=== PATIENT | female | born 1950 | race Caucasian/White ===

== ENCOUNTER 2016-04-22 05:58 | Outpatient (CLI) | payer OTHER ==
[~2016-04-22] VITALS: Ht 167.6 cm; Wt 72.6 kg
[~2016-04-22 05:58] MED LIST: ASP81TEC PO; VITAMINE D PO
--- OUTSIDE RECORDS SUMMARY | 2016-04-22 06:02 | XMS REPORT | Continuity of Care Document ---
Author Author [facility] Organization [facility] Address Unknown Phone Unavailable Allergies Active Description Code Type Severity Reaction Onset Reported/Identified Relationship to Patient Clinical Status Yes No Known Drug Allergies [id number] Drug Allergy Unknown N/ A 01/26/2012 Medications Problems Date Dx Coded Attending Type Code Diagnosis Diagnosed By 01/26/2012 Ot 562.10 DIVERTICULOSIS COLON (W/O MENT OF HEMORR 01/26/2012 Ot V12.72 PERSONAL HISTORY OF COLONIC POLYPS 01/26/2012 Ot V18.51 FAMILY HISTORY, COLONIC POLYPS 01/26/2012 Ot V76.51 SCREEN MAL NEOP-COLON 10/30/2014 Ot 733.90 10/30/2014 Ot 784.2 10/30/2014 Ot 611.72 10/30/2014 Ot 611.79 10/30/2014 Ot 268.9 10/30/2014 Ot 272.4 10/30/2014 Ot 733.90 10/30/2014 Ot 780.79 10/30/2014 Ot V72.62 10/30/2014 Ot V76.12 10/30/2014 Ot 793.80 10/30/2014 Ot V72.84 10/30/2014 GILMANDER DORAEKIA S Ot 610.0 10/30/2014 GILMANDCHERISE DOMARGUERITEKIA S Ot 611.79 10/30/2014 GILMANDCHERISE DOMARGUERITEKIA S Ot 733.00 10/30/2014 GILMANDER DOMARGUERITEKIA S Ot 780.79 10/30/2014 GILMANDCHERISE DOMARGUERITEKIA S Ot 793.82 10/30/2014 GILMANDCHERISE DORAEKIA S Ot V70.0 10/30/2014 GILMANDER DOMARGUERITEKIA S Ot 790.29 08/06/2015 GILMANDRAE LUONG DOLINE S Ot N64.4 MASTODYNIA 11/13/2015 Ot 611.72 LUMP OR MASS IN BREAST 11/13/2015 Ot 611.79 SYMPTOMS IN BREAST NEC 11/13/2015 Ot 268.9 VITAMIN D DEFICIENCY NOS 11/13/2015 Ot 272.4 HYPERLIPIDEMIA NEC/NOS 11/13/2015 Ot 733.90 BONE CARTILAGE DIS NOS 11/13/2015 Ot 780.79 OTH MALAISE FATIGUE 11/13/2015 Ot V72.62 LAB EXAM ORDERED PART OF A ROUTINE GE 11/13/2015 Ot V76.12 OTH SCREEN MAMMO-MALIGN NEOPLASM OF YINA 11/13/2015 Ot 793.80 UNSPEC ABNORMAL MAMMOGRAM 11/13/2015 Ot V72.84 EXAM PRE-OPERATIVE NOS 11/13/2015 RAE QUIGLEY DOLINE S Ot 610.0 SOLITARY CYST OF BREAST 11/13/2015 RAE QUIGLEY DOLINE S Ot 611.79 SYMPTOMS IN BREAST NEC 11/13/2015 GILMAFARRAH BRUNO KIA S Ot 733.00 OSTEOPOROSIS NOS 11/13/2015 SORAIDA RAEKIA S Ot 780.79 OTH MALAISE FATIGUE 11/13/2015 RAE QUIGLEY DOLINE S Ot 793.82 INCONCLUSIVE MAMMOGRAM 11/13/2015 RAE QUIGLEY DOLINE S Ot V70.0 ROUTINE MEDICAL EXAM 11/13/2015 GILMAFARRAH KIA S Ot 790.29 OTHER ABNORMAL GLUCOSE 11/13/2015 SORAIDA BRUNO KIA S Ot 268.9 VITAMIN D DEFICIENCY NOS 11/13/2015 GILMAFARRAH KIA S Ot 780.79 OTH MALAISE FATIGUE 11/13/2015 GILMANDCHERISE KIA S Ot 790.29 OTHER ABNORMAL GLUCOSE 11/13/2015 SORAIDA BRUNO KIA S Ot V70.0 ROUTINE MEDICAL EXAM 11/13/2015 GILMAFARRAH KIA S Ot V76.12 OTH SCREEN MAMMO-MALIGN NEOPLASM OF YINA 11/13/2015 RAE QUIGLEY DOLINE S Ot N64.4 MASTODYNIA 11/19/2015 SUE MELCHOR APRN Ot Z12.31 ENCNTR SCREEN MAMMOGRAM FOR MALIGNANT NE Procedures Results Test Result Range Complete blood count (CBC) with automated white blood cell (WBC) differential - 11/13/15 07:43 Blood leukocytes automated count (number/volume) 5.4 10*3/ uL 4.3-11.0 Blood erythrocytes automated count (number/volume) 4.50 10*6 /uL 4.35-5.85 Venous blood hemoglobin measurement (mass/volume) 13.6 g/dL 11.5-16.0 Blood hematocrit (volume fraction) 40 % 35-52 Automated erythrocyte mean corpuscular volume 89 [foz_us] 80-99 Automated erythrocyte mean corpuscular hemoglobin (mass per erythrocyte) 30 pg 25-34 Automated erythrocyte mean corpuscular hemoglobin concentration measurement ( mass/volume) 34 g/dL 32-36 Automated erythrocyte distribution width ratio 13.0 % 10.0-14.5 Automated blood platelet count (count/volume) 173 10*3/uL 130-400 Automated blood platelet mean volume measurement 10.5 [foz_ us] 7.4-10.4 Automated blood neutrophils/100 leukocytes 55 % 42-75 Automated blood lymphocytes/100 leukocytes 34 % 12-44 Blood monocytes/100 leukocytes 9 % 0-12 Automated blood eosinophils/100 leukocytes 2 % 0-10 Automated blood basophils/100 leukocytes 0 % 0-10 Blood neutrophils automated count (number/volume) 2.9 10*3 1.8-7.8 Blood lymphocytes automated count (number/volume) 1.8 10*3 1.0-4.0 Blood monocytes automated count (number/volume) 0.5 10*3 0.0-1.0 Automated eosinophil count 0.1 10*3/uL 0.0-0.3 Automated blood basophil count (count/volume) 0.0 10*3/uL 0.0-0.1 Comprehensive metabolic panel - 11/13/15 07:43 Serum or plasma sodium measurement (moles/volume) 140 mmol/ L 135-145 Serum or plasma potassium measurement (moles/volume) 4.0 mmol/L 3.6-5.0 Serum or plasma chloride measurement (moles/volume) 106 mmol /L 98-107 Carbon dioxide 25 mmol/L 21-32 Serum or plasma anion gap determination (moles/volume) 9 mmol/L 5-14 Serum or plasma urea nitrogen measurement (mass/volume) 13 mg/dL 7-18 Serum or plasma creatinine measurement (mass/volume) 0.82 mg /dL 0.60-1.30 Serum or plasma urea nitrogen/creatinine mass ratio 16 NRG Serum or plasma creatinine measurement with calculation of estimated glomerular filtration rate > NRG Serum or plasma glucose measurement (mass/volume) 103 mg/dL 70-105 Serum or plasma calcium measurement (mass/volume) 9.2 mg/dL 8.5-10.1 Serum or plasma total bilirubin measurement (mass/volume) 0.5 mg/dL 0.1-1.0 Serum or plasma alkaline phosphatase measurement (enzymatic activity/volume) 87 U/L 40-136 Serum or plasma aspartate aminotransferase measurement (enzymatic activity/ volume) 23 U/L 5-34 Serum or plasma alanine aminotransferase measurement (enzymatic activity/volume ) 22 U/L 0-55 Serum or plasma protein measurement (mass/volume) 6.7 g/dL 6.4-8.2 Serum or plasma albumin measurement (mass/volume) 4.3 g/dL 3.2-4.5 Lipid 1996 panel - 11/13/15 07:43 Serum or plasma triglyceride measurement (mass/volume) 68 mg /dL <150 Serum or plasma cholesterol measurement (mass/volume) 215 mg /dL < 200 Serum or plasma cholesterol in HDL measurement (mass/volume) 81 mg/dL 40-60 Cholesterol in LDL [mass/volume] in serum or plasma by direct assay 116 mg/dL 1-129 Serum or plasma cholesterol in VLDL measurement (mass/volume) 14 mg/dL 5-40 THYROID STIMULATING HORMONE - 11/13/15 07:43 THYROID STIMULATING HORMONE 2.47 u[iU]/mL 0.35-4.94 Serum or plasma thyroxine (T4) free measurement (mass/volume) - 11/13/15 07:43 Serum or plasma thyroxine (T4) free measurement (mass/volume) 0.90 ng/dL 0.70-1.48 Hemoglobin A1c - 11/13/15 07:43 Hemoglobin A1c 5.2 % 4.5-6.2 Encounters ACCT No. Visit Date/Time Discharge Status Pt. Type Provider Facility Loc./Unit Complaint [id number] 10/30/2014 09:20:00 2014 23:59:59 CLS Outpatient KIA QUIGLEY DO [facility] RAD SCREENING,YEARLY LAB [id number] 09/19/2013 07:37:00 2013 23:59:59 CLS Outpatient KIA QUIGLEY DO [facility] LAB HYPERGLYCEMIA [id number] 09/12/2013 07:00:00 2013 23:59:59 CLS Outpatient KIA QUIGLEY DO [facility] RAD BILAT DENSE BREAST [id number] 08/09/2012 11:47:00 2012 23:59:59 CLS Outpatient [id number] 04/22/2016 05:58:00 ACT Outpatient DEBRA MEADE, WANG Kenney [facility] PREOP HISTORY OF POLYPS [id number] 11/13/2015 07:22:00 ACT Outpatient SUE MELCHOR APRN [facility] RAD SCREENING,GENERAL MEDICAL EXAM,DIABETES, HYPERCHOLE [id number] 08/05/2015 13:38:00 ACT Outpatient KIA QUIGLEY DO [facility] RAD MASTALGIA, INNER, LOWER QUADRANT [id number] 01/26/2012 07:28:00 Document Registration [id number] 01/22/2012 08:12:00 Document Registration [id number] 01/21/2012 07:13:00 Document Registration [id number] 12/31/2011 09:20:00 Document Registration [id number] 11/03/2010 14:05:00 Document Registration [id number] 11/28/2009 09:35:00 Document Registration [id number] 06/07/2009 10:01:00 Document Registration
== END 2016-04-22 10:39 ==
LOC: PREOP 05:58
PROVIDERS: ATTEND Internal Medicine
DX: Z01.818 Encounter for other preprocedural examination (principal); K62.5 Hemorrhage of anus and rectum; Z86.010 Personal history of colon polyps

== ENCOUNTER 2016-04-24 07:46 | Day surgery (SDC) | payer MEDICARE, OTHER ==
[~2016-04-24] VITALS: Ht 167.6 cm; Wt 72.6 kg
--- OUTSIDE RECORDS SUMMARY | 2016-04-24 07:49 | XMS REPORT | Continuity of Care Document ---
Author Author [facility] Organization [facility] Address Unknown Phone Unavailable Allergies Active Description Code Type Severity Reaction Onset Reported/Identified Relationship to Patient Clinical Status Yes No Known Drug Allergies [id number] Drug Allergy Unknown N/ A 01/26/2012 Medications [...] 10/30/2014 GILMANDCHERISE DORAEKIA S Ot V70.0 10/30/2014 GILMANDCHERISE DOMARGUERITEKIA S Ot 790.29 08/06/2015 GILMANDRAE LUONG [...] Status Pt. Type Provider Facility Loc./Unit Complaint [id number] 04/22/2016 05:58:00 2016 10:39:00 DIS Outpatient DEBRA MEADE, WANG [facility] PREOP HISTORY OF POLYPS [id number] 10/30/2014 09:20:00 2014 23:59:59 CLS Outpatient KIA QUIGLEY DO [facility] RAD SCREENING,YEARLY LAB [id number] 09/19/2013 07:37:00 2013 23:59:59 CLS Outpatient KIA QUIGLEY DO [facility] LAB HYPERGLYCEMIA [id number] 09/12/2013 07:00:00 2013 23:59:59 CLS Outpatient KIA QUIGLEY DO [facility] RAD BILAT DENSE BREAST [id number] 08/09/2012 11:47:00 2012 23:59:59 CLS Outpatient [id number] 04/24/2016 07:46:00 ACT Outpatient DEBRA MEADE, WANG Kenney [facility] ENDO SCREENING/HISTORY POLYPS [id number] 11/13/2015 07:22:00 ACT Outpatient SUE MELCHOR APRN [facility] RAD SCREENING,GENERAL MEDICAL EXAM,DIABETES, HYPERCHOLE [id number] 08/05/2015 13:38:00 ACT Outpatient KIA QUIGLEY DO [facility] RAD MASTALGIA, INNER, LOWER QUADRANT [id number] 01/26/2012 07:28:00 Document Registration [id number] 01/22/2012 08:12:00 Document Registration [id number] 01/21/2012 07:13:00 Document Registration [id number] 12/31/2011 09:20:00 Document Registration [id number] 11/03/2010 14:05:00 Document Registration [id number] 11/28/2009 09:35:00 Document Registration [id number] 06/07/2009 10:01:00 Document Registration
--- OUTSIDE RECORDS SUMMARY | 2016-04-24 07:49 | XMS REPORT | Continuity of Care Document ---
Author Author [facility] Organization [facility] Address Unknown Phone Unavailable Allergies Active Description Code Type Severity Reaction Onset Reported/Identified Relationship to Patient Clinical Status Yes No Known Drug Allergies [id number] Drug Allergy Unknown N/ A 01/26/2012 Medications [...] 10/30/2014 GILMANDCHERISE DOMARGUERITEKIA S Ot 733.00 10/30/2014 IGLMANDER DOMARGUERITEKIA S Ot 780.79 10/30/2014 GILMANDCHERISE DOMARGUERITEKIA [...] Status Pt. Type Provider Facility Loc./Unit Complaint [id number] 04/22/2016 05:58:00 2016 10:39:00 DIS Outpatient DEBRA MEADE, WANG Kenney [facility] PREOP HISTORY OF POLYPS [id number] 10/30/2014 09:20:00 2014 23:59:59 CLS Outpatient KIA QUIGLEY DO [facility] RAD SCREENING,YEARLY LAB [id number] 09/19/2013 07:37:00 2013 23:59:59 CLS Outpatient KIA QUIGLEY DO [facility] LAB HYPERGLYCEMIA [id number] 09/12/2013 07:00:00 2013 23:59:59 CLS Outpatient KIA QUIGLEY DO [facility] RAD BILAT DENSE BREAST [id number] 08/09/2012 11:47:00 2012 23:59:59 CLS Outpatient [id number] 04/24/2016 07:46:00 ACT Outpatient DEBRA MEADE, WANG Kenney [facility] ENDO SCREENING/HISTORY POLYPS [id number] 11/13/2015 07:22:00 ACT Outpatient SUE MELCHOR APRN [facility] RAD SCREENING,GENERAL MEDICAL EXAM,DIABETES, HYPERCHOLE [id number] 08/05/2015 13:38:00 ACT Outpatient KIA QUIGLEY DO [facility] RAD MASTALGIA, INNER, LOWER QUADRANT [id number] 01/26/2012 07:28:00 Document Registration [id number] 01/22/2012 08:12:00 Document Registration [id number] 01/21/2012 07:13:00 Document Registration [id number] 12/31/2011 09:20:00 Document Registration [id number] 11/03/2010 14:05:00 Document Registration [id number] 11/28/2009 09:35:00 Document Registration [id number] 06/07/2009 10:01:00 Document Registration
[2016-04-24] MEDS ORDERED: 1/2 NS IV SOLUTION 1,000 ML IV STA (07:52)
[2016-04-24] MEDS ORDERED: 1/2 NS IV SOLUTION 1,000 ML IV ONE (07:57)
[2016-04-24] MEDS ORDERED: FLUMAZENIL (ROMAZICON) 0.1 MG/ML 5 ML VIAL INJ PRN (08:00)
[2016-04-24] MEDS ORDERED: NALOXONE 0.4 MG/ML 1 ML (NARCAN) VIAL IVP PRN (08:00)
--- NOTE | 2016-04-24 08:12 | HISTORY AND PHYSICAL ---
DATE OF ADMISSION: 04/24/2016 DICTATING PHYSICIAN: Dr. Restrepo COLONOSCOPY HISTORY AND PHYSICAL: Mrs. Rene is a 66-year-old white female referred by Dr. Reyes for diagnostic colonoscopy. She reports while on vacation in [place], she developed the onset of diarrhea with bright red blood per rectum. It was reported large in volume enough so that she terminated trip 10 days ago early and returned to the [facility]. She had mild cramping associated with this and it lasted for 36 hours and had 6 to 7 loose stools with blood and about 12 diarrheal stools altogether. She denied associated chills or fever. She reports that no one else was sick on the trip. She finish a weeks' worth of Cipro and Flagyl and reports that she is feeling better, although still little weak. She had no syncope or associated presyncope. I last performed a colonoscopy on her 5 years ago, at which time she had no evidence for neoplasia, but did have moderate diverticular disease confined to her sigmoid colon. She does have a past history of adenomatous colonic polyps. PAST MEDICAL HISTORY: Noncontributory. ALLERGIES: She reports no past surgeries in the last 5 years and has had no past abdominal surgery. CURRENT MEDICATIONS: Include: 1. Fish oil capsule 1 daily. 2. Baby aspirin daily. 3. 5000 units of vitamin D 3 daily. SOCIAL HISTORY: She is retired with no past smoking history and rare moderate alcohol intake. PHYSICAL EXAMINATION: Reveals a white female, who appears to be in no acute distress. VITAL SIGNS: Blood pressure 122/70. Weight 169.2. HEENT EXAMINATION: Reveals a Mallampati class II oropharyngeal configuration. Pharynx reveals no evidence for erythema or exudate. NECK: Reveals no JVD, adenopathy or bruits. CHEST: Clear. CV: Reveals a regular rate and rhythm without murmur, S3 or S4. ABDOMEN: Soft, supple without masses, organomegaly or tenderness. EXTREMITIES: Reveal no cyanosis, clubbing, or edema. ASSESSMENT: For further evaluation of diarrhea and rectal bleeding, the patient was set-up for colonoscopy on the . Prep instructions for split dose Colyte were given and questions were answered. She was instructed to abstain from aspirin in the interim. I thank you for the referral of this pleasant lady. Sincerely, Job ID: [id number] Dictated Date: 04/16/2016 20:43:00 District Superintendent Date: 04/17/2016 08:28:50/nia
[2016-04-24 08:17] VITALS: BP 110/64
[2016-04-24] MEDS ORDERED: LIDOCAINE JELLY 2% (XYLOCAINE) 5 ML TUBE ONE (08:39)
[2016-04-24] MEDS ORDERED: fentaNYL INJECTION 100 MCG/2 ML AMP ONE ×2 (08:39→08:50)
[2016-04-24] MEDS ORDERED: MIDAZOLAM 2 MG/2 ML (VERSED) VIAL ONE ×3 (08:39→08:51)
[2016-04-24] MEDS: fentaNYL INJECTION 100 MCG/2 ML AMP IVP PRN ×3 (08:40→08:50)
[2016-04-24] MEDS: MIDAZOLAM 2 MG/2 ML (VERSED) VIAL IVP PRN ×3 (08:41→09:04)
--- NOTE | 2016-04-24 08:49 | Pre-Op Note & Conscious Sedat ---
Pre-Operative Progress Note H&P Reviewed The H&P was reviewed, patient examined and no changes noted. Date H&P Reviewed: Apr 24, 2016 Time H&P Reviewed: 07:50 Conscious Sedation Pre-Proced ASA Class: 2 Airway Mallampati Classification: (twenty-nine palms appropriate class) I. II. III, IV Lungs Heart ASA score ASA 1: a normal healthy patient ASA 2: a patient with a mild systemic disease (mid diabetes, controlled hypertension, obesity ASA 3: a patient with a severe systemic disease that limits activity (angina , COPD, prior Myocardial infarction) ASA 4: a patient with an incapacitating disease that is a constant threat to life (CHF, renal failure) ASA 5: a moribund patient not expected to survive 24 hrs. (ruptured aneurysm) ASA 6: a declared brain patient whose organs are being harvested. For emergent operations, add the letter E after the classification Grade 2 Sedation Plan: Analgesia, Amnesia, Plan communicated to team members, Discussed options with patient/fam, Discussed risks with patient/fam Note The patient is an appropriate candidate to undergo the planned procedure, sedation, and anesthesia. The patient immediately re-assessed prior to indication. WANG RICHARDSON MD Apr 24, 2016 08:49
[2016-04-24] MEDS ORDERED: LIDOCAINE JELLY 2% (XYLOCAINE) 5 ML TUBE TOP ONE (09:15)
[2016-04-24] MEDS ORDERED: LIDOCAINE 4% INJ (XYLOCAINE) 5ML AMP TOP ONE (09:15)
[2016-04-24 09:35] VITALS: BP 95/58
[2016-04-24 10:05] VITALS: BP 100/54
[2016-04-24 10:25] VITALS: BP 100/54
--- NOTE | 2016-04-24 20:38 | PROCEDURE REPORT ---
PROCEDURE PHYSICIAN: WANG RICHARDSON DATE OF PROCEDURE: 04/24/2016 COLONOSCOPY SUMMARY: INDICATION FOR THE PROCEDURE: Diagnostic colonoscopy due to a history of diarrhea with rectal bleeding. PROCEDURE: The patient was placed in left lateral decubitus position. Prior to undergoing colonoscopy, digital rectal evaluation was performed. No abnormalities were noted to digital inspection of the anal canal or distal rectal vault. Anal sphincter tone was normal and the perianal reflux was intact. The colonoscope was then inserted into the rectum and under direct visualization, advanced to the cecum. The cecum was identified by identification of the ileocecal valve and cecal strap. Photographic documentation was obtained. Careful inspection was made as the colonoscope was withdrawn. FINDINGS: Telangiectatic vessel formation was noted in the anal canal, which was otherwise unremarkable. There was no evidence for overt hemorrhoids. The rectum was unremarkable. Multiple small to medium size sigmoid diverticulum were present with haustral hypertrophy. There were areas of narrowing without obstruction and some corkscrewing of the sigmoid colon compatible with severe diverticular disease. There was no evidence to suggest acute diverticulitis at the time of the procedure. No evidence for blood was noted on today's colonoscopy. No other sigmoid colonic abnormalities were appreciated. A few diverticulum were noted in the descending colon but to a much lesser extent. No other descending colonic abnormalities are appreciated. The splenic flexure, transverse colon, hepatic flexure, ascending colon and cecum were unremarkable. ASSESSMENT: No evidence for neoplasia was noted on today's evaluation. Severe diverticular disease is present most notably in the sigmoid colon and to a lesser extent in the descending colon. There is no evidence to suggest acute diverticulitis. Telangiectatic blood vessel formation is noted in the anal canal. I suspect either this or a diverticular etiology was the source of this patient's bleeding, likely triggered by an infection picked up in her foreign travel so called [place]. She was reassured. As this was her second colonoscopy without evidence for neoplasia and considering lack of family history of first degree relative with colon cancer and her severe diverticular disease, I would not recommend future screening colonoscopy. I thank you for the referral of this pleasant lady. Sincerely, Job ID: [id number] Dictated Date: 04/24/2016 13:20:05 Manager Regional Date: 04/24/2016 20:30:46 / nia DAMON
== END 2016-04-24 10:25 | disposition home or self-care (01) ==
LOC: ENDO 07:46
PROVIDERS: ATTEND Internal Medicine
DX: K57.30 Diverticulosis of large intestine without perforation or abscess without bleeding (principal); K62.5 Hemorrhage of anus and rectum; R19.7 Diarrhea, unspecified

== ENCOUNTER → 2016-11-13 | Outpatient (CLI) | payer MEDICARE, OTHER ==
[2016-11-13 10:04] LABS: BASOPHILS % (AUTO) 0 % (0-10); EOSINOPHILS # (AUTO) 0.1 10^3/uL (0.0-0.3); EOSINOPHILS % (AUTO) 2 % (0-10); LYMPHOCYTES # (AUTO) 1.7 X 10^3 (1.0-4.0); LYMPHOCYTES % (AUTO) 31 % (12-44); MEAN CORPUSCULAR HEMOGLOBIN 29 PG (25-34); MEAN CORPUSCULAR HGB CONC 33 G/DL (32-36); MEAN CORPUSCULAR VOLUME 89 FL (80-99); MONOCYTES # (AUTO) 0.5 X 10^3 (0.0-1.0); MONOCYTES % (AUTO) 9 % (0-12); NEUTROPHILS # (AUTO) 3.1 X 10^3 (1.8-7.8); NEUTROPHILS % (AUTO) 58 % (42-75); PLATELET COUNT 183 10^3/uL (130-400); RED CELL DISTRIBUTION WIDTH 13.2 % (10.0-14.5); WHITE BLOOD COUNT 5.3 10^3/uL (4.3-11.0)
[2016-11-13 10:26] LABS: ALANINE AMINOTRANSFERASE 22 U/L (0-55); ALBUMIN 4.2 GM/DL (3.2-4.5); ANION GAP 7 MMOL/L (5-14); ASPARTATE AMINO TRANSFERASE 20 U/L (5-34); BILIRUBIN,TOTAL 0.5 MG/DL (0.1-1.0); BLOOD UREA NITROGEN 16 MG/DL (7-18); BUN/CREATININE RATIO 19; CALCIUM 9.3 MG/DL (8.5-10.1); CARBON DIOXIDE 29 MMOL/L (21-32); CHLORIDE 106 MMOL/L (98-107); CHOLESTEROL 204 MG/DL (< 200); CREATININE SERUM 0.86 MG/DL (0.60-1.30); DIRECT LDL 110 MG/DL (1-129); GFR ESTIMATED > 60; GLUCOSE 99 MG/DL (70-105); POTASSIUM 4.3 MMOL/L (3.6-5.0); SODIUM 142 MMOL/L (135-145); TOTAL PROTEIN 7.1 GM/DL (6.4-8.2); TRIGLYCERIDES 73 MG/DL (<150); VLDL CHOLESTEROL 15 MG/DL (5-40)
[2016-11-13 10:47] LABS: THYROID STIMULATING HORMONE 1.77 UIU/ML (0.35-4.94)
== END ==
LOC: RAD 09:49
PROVIDERS: ATTEND Family Medicine
DX: Z12.31 Encounter for screening mammogram for malignant neoplasm of breast (principal); E78.4 Other hyperlipidemia; R73.02 Impaired glucose tolerance (oral); R63.5 Abnormal weight gain
CPT/HCPCS: 36415; 77067; 80053; 80061; 83036; 84439; 84443; 85025

== ENCOUNTER 2016-12-16 19:07 | Emergency (ER) | payer MEDICARE, OTHER ==
[~2016-12-16] VITALS: Ht 167.6 cm; Wt 74.8 kg
[2016-12-16] MEDS ORDERED: METF-478 PO (19:57)
--- NOTE | 2016-12-16 20:15 | Diagnostic Imaging Report ---
INDICATION: Fell walking. FINDINGS: There is a somewhat comminuted fracture of the distal fibula involving the lateral malleolus with an oblique fracture. There is also a longer oblique fracture extending more superiorly in the metadiaphyseal portion of the fibula. Overall alignment appears good. Ankle mortise shows no widening. The syndesmosis does not appear widened. The talar dome is smooth. There is a mildly displaced posterior malleolar fracture as well which extends into the articulating surface of the tibia. IMPRESSION: 1. Mildly displaced posterior malleolar fracture of the tibia. 2. Somewhat comminuted fracture of the metadiaphyseal portion of the distal fibula. Dictated by: Dictated on workstation # [id number]
--- NOTE | 2016-12-16 20:56 | ED Fall/Injury ---
General Chief Complaint: Lower Extremity Stated Complaint: LT ANKLE INJ Nursing Triage Note: PT REPORTS WALKING DOG THIS EVENING AND TRIPPING. REPORTS HEARING A "POP" AND LEFT ANKLE SWELLING. PT BROUGHT INTO EXAM ROOM PER WC, ACCOMPANIED BY . PT UNABLE TO BEAR WEIGHT ON LEFT LE AT THIS TIME Source: patient, spouse Exam Limitations: no limitations History of Present Illness Time seen by provider: 18:25 Initial Comments Patient presents to ER by private conveyance with chief complaint that she was out walking her dog and on a slope she fell rolling her ankle everted on the left side she felt a popping sensation and had a lot of pain and swelling. She has given herself NSAIDs as well as ice directly over the joint. She has no history of trauma to this foot. She is on metformin for prediabetes but has no other significant medical history or surgical history. She does not smoke drink or use alcohol. She has sensation in her foot. She has not tried putting any weight on it because of the pain. Allergies and Home Medications Allergies Coded Allergies: No Known Drug Allergies (Unverified , 01/26/12) Home Medications Metformin HCl 500 Mg Tab.er.24, 500 MG PO DAILY, (Reported) Constitutional: No chills, No fever, No malaise Eyes: Denies Blindness, Denies Drainage Ears, Nose, Mouth, Throat: denies ear pain, denies ear discharge Respiratory: No cough, No dyspnea on exertion Cardiovascular: No chest pain, No palpitations Gastrointestinal: No constipation, No nausea : No Musculoskeletal: see HPI, No back pain, No gout, joint pain, joint swelling Skin: change in color, No pruritus, No rash Past Znliqch-Nigmwh-Fxhrqg Hx Patient Social History Alcohol Use: Occasionally Uses Recreational Drug Use: No Smoking Status: Never a Smoker Recent Foreign Travel: No Contact w/Someone Who Travel: No Recent Infectious Disease Expo: No Recent Hopitalizations: No Immunizations Up To Date Tetanus Booster (TDap): Unknown Date of Pneumonia Vaccine: Sep 29, 2016 Date of Influenza Vaccine: Sep 29, 2016 Seasonal Allergies Seasonal Allergies: No Surgeries History of Surgeries: Yes Surgeries: Tubal Ligation Respiratory History of Respiratory Disorde: No Currently Using CPAP: No Currently Using BIPAP: No Cardiovascular History of Cardiac Disorders: No Neurological History of Neurological Disord: No Reproductive System : No Hx Reproductive Disorders: No Sexually Transmitted Disease: No HIV/AIDS: No Female Reproductive Disorders: Denies COOK VACUUM KETTLE History: Tubal Ligation Genitourinary History of Genitourinary Disor: No Gastrointestinal History of Gastrointestinal Di: Yes Gastrointestinal Disorders: Polyps Musculoskeletal History of Musculoskeletal Dis: No Endocrine History of Endocrine Disorders: No (PRE-DIABETIC) HEENT History of HEENT Disorders: No Loss of Vision: Denies Hearing Impairment: Denies Cancer History of Cancer: No Psychosocial History of Psychiatric Problem: No Integumentary History of Skin or Integumenta: No Blood Transfusions History of Blood Disorders: No Physical Exam Vital Signs Vital Sign - Last 12Hours 12/16/16 19:50 Temp 98.1 Pulse 69 Resp 18 B/P (MAP) 146/77 Pulse Ox 95 O2 Delivery Room Air Capillary Refill : Less Than 3 Seconds General Appearance: WD/WN, mild distress HEENT: PERRL/EOMI, pharynx normal Neck: full range of motion, normal inspection Cardiovascular: normal peripheral pulses, regular rate, rhythm, no edema Respiratory: chest non-tender, lungs clear, normal breath sounds Peripheral Pulses: 2+ Dorsalis Pedis (R), 2+ Left Dors-Pedis (L) (Posterior tibialis left foot 2 out of 4.) Gastrointestinal: normal bowel sounds, non tender, soft Extremities: no calf tenderness, normal capillary refill, swelling (Left ankle ecchymosis and swelling and painful to touch with limited range of motion secondary to pain.) Neurologic/Psychiatric: no motor/sensory deficits, alert, normal mood/affect, oriented x 3 Skin: normal color, warm/dry, ecchymosis Progress/Results/Core Measures Results/Orders My Orders Orders - KYAW ANAND Ankle, Left, 3 Views (12/16/16 19:49) Vital Signs/I&O Vital Sign - Last 12Hours 12/16/16 19:50 Temp 98.1 Pulse 69 Resp 18 B/P (MAP) 146/77 Pulse Ox 95 O2 Delivery Room Air Blood Pressure Mean: 100 Diagnostic Imaging Diagonstic Imaging: Xray Plain Films/CT/US/NM/MRI: ankle Comments [place]IA [place], [place] NAME: DIONNE EARL MED REC#: [id number] PT STATUS: REG ER : 1950 PHYSICIAN: KYAW ANAND MD ADMIT DATE: 12/16/16/ER Draft Date of Exam:12/16/16 ANKLE, LEFT, 3 VIEWS INDICATION: Fell walking. FINDINGS: There is a somewhat comminuted fracture of the distal fibula involving the lateral malleolus with an oblique fracture. There is also a longer oblique fracture extending more superiorly in the metadiaphyseal portion of the fibula. Overall alignment appears good. Ankle mortise shows no widening. The syndesmosis does not appear widened. The talar dome is smooth. There is a mildly displaced posterior malleolar fracture as well which extends into the articulating surface of the tibia. IMPRESSION: 1. Mildly displaced posterior malleolar fracture of the tibia. 2. Somewhat comminuted fracture of the metadiaphyseal portion of the distal fibula. Dictated on workstation # [id number] Dict: 12/16/162009 Trans: 12/16/[address] [place] [address] [id number] Interpreted by: AMRIK ZUÑIGA MD Electronically signed by: Reviewed: Reviewed by Me Departure Impression Impression: Primary Impression: Fracture tibia/fibula Qualified Codes: S82.202A - Unspecified fracture of shaft of left tibia, initial encounter for closed fracture; S82.402A - Unspecified fracture of shaft of left fibula, initial encounter for closed fracture Disposition: 01 HOME, SELF-CARE Condition: Stable Departure-Patient Inst. Decision time for Depature: 20:53 Referrals: KIA QUIGLEY DO (PCP/Family) Primary Care Physician Patient Instructions: Ankle Fracture (DC) Add. Discharge Instructions: Your fracture in your left ankle that he should follow-up with Dr. Turcios at [facility] by calling his office at [phone] in the morning to get an appointment in the next 1-2 weeks. Wear the splint daily and keep it clean and dry. You may take it off momentarily to clean but do not apply any more weight than toe-touch to your foot. Use an NSAID such as ibuprofen 800 mg every 8 hours or Naprosyn 2 capsules twice a day as well as Tylenol to control your pain if this is not working you may take the hydrocodone. Hydrocodone will make you drowsy increase her risk of falls and cause constipation so use it 1-2 tablets every 6 hours as needed responsibly. Do not mix with alcohol. If you have discoloration of your foot accompanied with tingling, numbness or extreme pain he should release the Brad bandage on your splint and raise the foot above the level of your heart. If this is not improving shortly then you should return to the ER. If your pain management is inadequate then you should follow- up with your primary care physician or the orthopedic surgeon. All discharge instructions reviewed with patient and/or family. Voiced understanding. Scripts Hydrocodone/Acetaminophen (Hydrocodon -Acetaminophen 5-325) 1 Each Tablet 1-2 EACH PO Q6H Y for BREAKTHROUGH PAIN, #30 TAB 0 Refills Prov: KYAW ANAND 12/16/16 Copy Copies To 1: KIA QUIGLEY DO Copies To 2: ORLIN TURCIOS DO KYAW ANAND Dec 16, 2016 20:56
[2016-12-16] MEDS ORDERED: HYDR-3812 PO (20:57)
[2016-12-16] MEDS ORDERED: RX-HYDROCODONE/APAP 5/325 MG #4 TAB PK PO PRN (21:30)
[2016-12-16 21:57] VITALS: BP 133/95
== END 2016-12-16 21:57 | disposition home or self-care (01) ==
LOC: EDUNIT# 19:07 → ER 19:08
DX: S82.52XA Displaced fracture of medial malleolus of left tibia, initial encounter for closed fracture (principal); Z98.51 Tubal ligation status; Z87.19 Personal history of other diseases of the digestive system; Z79.84 Long term (current) use of oral hypoglycemic drugs; W01.0XXA Fall on same level from slipping, tripping and stumbling without subsequent striking against object, initial encounter; X50.0XXA Overexertion from strenuous movement or load, initial encounter
CPT/HCPCS: 29515; 73610

== ENCOUNTER → 2017-05-13 | Outpatient (CLI) | payer MEDICARE, OTHER ==
[~2017-05-13] MED LIST changes: +ACHD5005 PO; +METF-478 PO
[2017-05-13 08:49] LABS: ALANINE AMINOTRANSFERASE 17 U/L (0-55); ALBUMIN 4.2 GM/DL (3.2-4.5); ALKALINE PHOSPHATASE 95 U/L (40-136); BILIRUBIN,TOTAL 0.6 MG/DL (0.1-1.0); BUN/CREATININE RATIO 22; CALCIUM 9.1 MG/DL (8.5-10.1); CARBON DIOXIDE 30 MMOL/L (21-32); CHLORIDE 105 MMOL/L (98-107); CHOLESTEROL 193 MG/DL (< 200); CREATININE SERUM 0.76 MG/DL (0.60-1.30); GFR ESTIMATED > 60; GLUCOSE 94 MG/DL (70-105); HDL CHOLESTEROL 73 MG/DL (40-60); POTASSIUM 3.9 MMOL/L (3.6-5.0); SODIUM 140 MMOL/L (135-145); TOTAL PROTEIN 6.8 GM/DL (6.4-8.2); TRIGLYCERIDES 62 MG/DL (<150); VLDL CHOLESTEROL 12 MG/DL (5-40)
--- NOTE | 2017-05-13 09:25 | Diagnostic Imaging Report ---
INDICATION: Osteopenia. COMPARISON: Comparison is made with prior exam from 06/07/2009. FINDINGS: Bone mineral analysis of the lumbar spine and both hips was performed. Bone mineral density of the lumbar spine at L2 through L4 is 0.998 with a T score of -1.7. This compares with 1.023 and -1.3 on prior. A bone mineral density of the left femoral neck is 0.765 with a T score of -2.0. This compares with 0.810 and -1.6. Bone mineral density of right femoral neck is 0.759 with T score of -2.0. This compares with 0.797 and -1.7 on prior. IMPRESSION: Findings consistent with osteopenia of the lumbar spine and bilateral femoral necks. Dictated by: Dictated on workstation # [id number]
== END ==
LOC: RAD 08:10
PROVIDERS: ATTEND Family Medicine
DX: M81.0 Age-related osteoporosis without current pathological fracture (principal); M85.88 Other specified disorders of bone density and structure, other site; S82.891D Other fracture of right lower leg, subsequent encounter for closed fracture with routine healing; E78.5 Hyperlipidemia, unspecified; R73.9 Hyperglycemia, unspecified
CPT/HCPCS: 36415; 77080; 80053; 80061; 83036

== ENCOUNTER 2017-05-20 08:39 | Outpatient (RCR) | payer MEDICARE, OTHER | END 2017-05-24 | disposition home or self-care (01) | PROVIDERS: ATTEND Orthopaedic Surgery | DX: S82.52XD Displaced fracture of medial malleolus of left tibia, subsequent encounter for closed fracture with routine healing (principal); X50.0XXD Overexertion from strenuous movement or load, subsequent encounter ==

== ENCOUNTER 2017-06-23 07:52 | Outpatient (RCR) | payer MEDICARE, OTHER | END 2017-06-24 13:35 | disposition home or self-care (01) | PROVIDERS: ATTEND Orthopaedic Surgery | DX: S82.52XD Displaced fracture of medial malleolus of left tibia, subsequent encounter for closed fracture with routine healing (principal); X50.0XXD Overexertion from strenuous movement or load, subsequent encounter ==

== ENCOUNTER → 2017-11-24 | Outpatient (CLI) | payer MEDICARE, OTHER ==
[2017-11-24 08:15] LABS: ALANINE AMINOTRANSFERASE 29 U/L (0-55); ALBUMIN 4.2 GM/DL (3.2-4.5); ALKALINE PHOSPHATASE 93 U/L (40-136); BILIRUBIN,TOTAL 0.5 MG/DL (0.1-1.0); BUN/CREATININE RATIO 17; CALCIUM 9.1 MG/DL (8.5-10.1); CARBON DIOXIDE 23 MMOL/L (21-32); CHLORIDE 107 MMOL/L (98-107); CHOLESTEROL 198 MG/DL (< 200); CREATININE SERUM 0.87 MG/DL (0.60-1.30); GFR ESTIMATED > 60; GLUCOSE 116 MG/DL (70-105); HDL CHOLESTEROL 72 MG/DL (40-60); POTASSIUM 4.3 MMOL/L (3.6-5.0); SODIUM 138 MMOL/L (135-145); TOTAL PROTEIN 6.8 GM/DL (6.4-8.2); TRIGLYCERIDES 77 MG/DL (<150); VLDL CHOLESTEROL 15 MG/DL (5-40)
[2017-11-24 08:36] LABS: FREE T4 (FREE THYROXINE) 0.94 NG/DL (0.70-1.48)
--- NOTE | 2017-11-24 09:09 | Diagnostic Imaging Report ---
INDICATION: Screening. TECHNIQUE: The current study was also evaluated with a Computer Aided Detection (CAD) system. 3D tomosynthesis was also performed and reviewed. COMPARISON: 11/13/2016 back through 12/31/2011. FINDINGS: There are scattered fibroglandular densities bilaterally. There are benign type calcifications in both breasts. There is no dominant mass, spiculated lesion, or suspicious calcification identified. The skin, nipples, and axillae are unremarkable. IMPRESSION: Benign findings. ACR BI-RADS Category 2: Benign findings. Result letter will be mailed to the patient. Note: At least 10% of breast cancer is not imaged by mammography. Dictated by: Dictated on workstation # [id number]
== END ==
LOC: RAD 07:25
PROVIDERS: ATTEND Family Medicine
DX: Z12.31 Encounter for screening mammogram for malignant neoplasm of breast (principal); E78.5 Hyperlipidemia, unspecified; R73.9 Hyperglycemia, unspecified; M85.88 Other specified disorders of bone density and structure, other site
CPT/HCPCS: 36415; 77067; 80053; 80061; 82306; 83036; 84439; 84443

== ENCOUNTER → 2018-12-02 | Outpatient (CLI) | payer MEDICARE, OTHER ==
[2018-12-02 08:45] LABS: BASOPHILS % (AUTO) 1 % (0-10); EOSINOPHILS # (AUTO) 0.1 10^3/uL (0.0-0.3); EOSINOPHILS % (AUTO) 3 % (0-10); HEMATOCRIT 40 % (35-52); HEMOGLOBIN 13.5 G/DL (11.5-16.0); LYMPHOCYTES # (AUTO) 1.3 X 10^3 (1.0-4.0); LYMPHOCYTES % (AUTO) 37 % (12-44); MEAN CORPUSCULAR HEMOGLOBIN 30 PG (25-34); MEAN CORPUSCULAR HGB CONC 33 G/DL (32-36); MEAN CORPUSCULAR VOLUME 89 FL (80-99); MONOCYTES # (AUTO) 0.5 X 10^3 (0.0-1.0); MONOCYTES % (AUTO) 14 % (0-12); NEUTROPHILS # (AUTO) 1.6 X 10^3 (1.8-7.8); NEUTROPHILS % (AUTO) 45 % (42-75); PLATELET COUNT 157 10^3/uL (130-400); RED CELL DISTRIBUTION WIDTH 13.6 % (10.0-14.5); WHITE BLOOD COUNT 3.5 10^3/uL (4.3-11.0)
[2018-12-02 09:07] LABS: ALANINE AMINOTRANSFERASE 34 U/L (0-55); ALBUMIN 4.1 GM/DL (3.2-4.5); ALKALINE PHOSPHATASE 79 U/L (40-136); BILIRUBIN,TOTAL 0.4 MG/DL (0.1-1.0); BUN/CREATININE RATIO 14; CALCIUM 9.3 MG/DL (8.5-10.1); CARBON DIOXIDE 26 MMOL/L (21-32); CHLORIDE 107 MMOL/L (98-107); CHOLESTEROL 190 MG/DL (< 200); CREATININE SERUM 0.83 MG/DL (0.60-1.30); GFR ESTIMATED > 60; GLUCOSE 107 MG/DL (70-105); HDL CHOLESTEROL 66 MG/DL (40-60); POTASSIUM 4.2 MMOL/L (3.6-5.0); SODIUM 141 MMOL/L (135-145); TOTAL PROTEIN 6.8 GM/DL (6.4-8.2); TRIGLYCERIDES 71 MG/DL (<150); VLDL CHOLESTEROL 14 MG/DL (5-40)
[2018-12-02 09:23] LABS: FREE T4 (FREE THYROXINE) 0.97 NG/DL (0.70-1.48)
[2018-12-02 09:54] LABS: ERYTHROCYTE SEDIMENTATION RATE 11 MM/HR (0-30)
--- NOTE | 2018-12-02 13:02 | Diagnostic Imaging Report ---
INDICATION: Routine screening. Comparison is made with prior mammogram from 11/24/2017 and 11/13/2016. 2-D and 3-D bilateral screening mammography was performed with a Computer Aided Detection (CAD) system. 3-D tomosynthesis was also performed and reviewed. FINDINGS: Both breasts are heterogeneously dense, limiting the sensitivity of mammography. There is a questionable area of architectural distortion identified just medial to the nipple line at mid depth on the left CC view. This is best seen on tomographic image 33 of 76. This is seen at the nipple line on MLO view, tomographic image 42 of 78. Additional views are recommended. Other benign calcifications in both breasts. No malignant appearing microcalcifications are seen. Axillae are unremarkable. IMPRESSION: Questionable architectural distortion in the left breast mid depth slightly medial. Additional views are recommended for further evaluation. ACR BI-RADS Category 0: Incomplete. (Needs additional imaging evaluation). Result letter will be mailed to the patient. Note: At least 10% of breast cancer is not imaged by mammography. Dictated by: Dictated on workstation # [id number]
== END ==
LOC: RAD 08:16
PROVIDERS: ATTEND Family Medicine
DX: Z12.31 Encounter for screening mammogram for malignant neoplasm of breast (principal); E78.5 Hyperlipidemia, unspecified; R73.9 Hyperglycemia, unspecified; M85.811 Other specified disorders of bone density and structure, right shoulder
CPT/HCPCS: 36415; 77067; 80053; 80061; 82306; 83036; 84439; 84443; 85025; 85652

== ENCOUNTER → 2018-12-14 | Outpatient (CLI) | payer MEDICARE, OTHER ==
--- NOTE | 2018-12-14 09:03 | Diagnostic Imaging Report ---
INDICATION: Left breast density. Patient presents for additional views. COMPARISON: Correlation is made with the recent screening study from 12/02/2018. TECHNIQUE: Unilateral left 2D and 3D diagnostic mammography was performed including spot compression CC and ML as well as conventional 90 degree lateral views. FINDINGS: There is a persistent area of spiculation and architectural distortion in the inner left breast approximately 5 cm from the nipple. There are some benign calcifications in the left breast. IMPRESSION: Persistent density and architectural distortion in the inner left breast at approximately the 9 o'clock location 5 cm from the nipple. Further evaluation with ultrasound is recommended. ACR BI-RADS Category 0: Incomplete. (Needs additional imaging evaluation). Result letter will be mailed to the patient. Note: At least 10% of breast cancer is not imaged by mammography. Dictated by: Dictated on workstation # [id number]
--- NOTE | 2018-12-14 09:45 | Diagnostic Imaging Report ---
INDICATION: Left breast density and architectural distortion noted on mammogram. This study is performed for further evaluation. COMPARISON: Correlation is made with the diagnostic mammogram from earlier this same day as well as the screening mammogram from 12/02/2018. FINDINGS: Sonographic interrogation of the inner left breast was performed. There are two areas of hypoechogenicity at the 9 o'clock location of the left breast 4 cm from the nipple. The largest measures approximately 6 mm x 4 mm x 7 mm. These most likely represent small cysts and likely do not account for the area of architectural distortion noted mammographically. No other suspicious abnormalities are seen. IMPRESSION: No suspicious sonographic abnormality is seen. Even so, the mammographic area of architectural distortion in the inner left breast does remain concerning. Tissue sampling is recommended. This would be amenable to stereotactic biopsy. The results and recommendations were discussed with the patient. The patient will be scheduled for stereotactic biopsy. ACR BI-RADS Category 4: Suspicious abnormality. Dictated by: Dictated on workstation # [id number]
== END ==
LOC: RAD 08:12
PROVIDERS: ATTEND Family Medicine
DX: R92.2 Inconclusive mammogram (principal)
CPT/HCPCS: 76642

== ENCOUNTER → 2018-12-21 | Outpatient (CLI) | payer MEDICARE, OTHER ==
[~2018-12-21] VITALS: Ht 167.7 cm; Wt 72.7 kg
[~2018-12-21] MED LIST changes: +LIDOCAINE 1% INJ 20 ML 20 ML VIAL INJ ONE
--- NOTE | 2018-12-21 19:49 | Diagnostic Imaging Report ---
INDICATION: Abnormal screening mammogram with architectural distortion and questionable breast mass TECHNIQUE AND FINDINGS: The patient was placed in the Mammotome machine with the biopsy needle projecting from the lateral aspect of the breast. The breast was prepped and draped utilizing maximal sterile barrier technique. Local anesthesia was obtained with 2% lidocaine. Needle was advanced into the area of architectural distortion under stereotactic guidance. Four core biopsy specimens were obtained. Following biopsy, a surgical clip was placed. Post mammogram demonstrates the clip in satisfactory position. IMPRESSION: Successful mammotome biopsy of area of architectural distortion in the left breast with clip placement as described. Dictated by: Dictated on workstation # [id number]
== END ==
LOC: RAD 09:38
PROVIDERS: ATTEND Family Medicine
DX: N63.20 Unspecified lump in the left breast, unspecified quadrant (principal); N64.89 Other specified disorders of breast
CPT/HCPCS: 19081

== ENCOUNTER → 2019-12-12 | Outpatient (CLI) | payer MEDICARE, OTHER ==
[~2019-12-12] MED LIST changes: -LIDOCAINE 1% INJ 20 ML 20 ML VIAL INJ ONE
--- NOTE | 2019-12-12 09:23 | Diagnostic Imaging Report ---
INDICATION: Postmenopausal female COMPARISON: 05/13/2017 FINDINGS: AP Spine L1-L4: [BMD (g/cm2): 1.009] [T-Score: -1.6] [Z-Score: -0.2] [BMD Previous: 0.998] [BMD % Change: 1.1] LT Hip Neck: [BMD (g/cm2): 0.777] [T-Score: -1.9] [Z-Score: -0.4] LT Hip Total: [BMD (g/cm2):0.806] [T-Score:-1.6] [Z-Score: -0.4] [BMD Previous: 0.762] [BMD % Change: 5.8] RT Hip Neck: [BMD (g/cm2):0.819] [T-Score:-1.6] [Z-Score:-0.1] RT Hip Total: [BMD (g/cm2):0.875] [T-score:-1.1] [Z-Score:0.2] [BMD Previous:0.837] [BMD % Change:4.5] World Health Organization criteria for BMD interpretation classify patients as Normal (T-score at or above -1.0), Osteopenic (T-score between -1.0 and -2.5) or Osteoporotic (T-score at or below -2.5). LIMITATIONS AND MODIFICATION: None. FRACTURE RISK (FRAX SCORE): The ten year probability of (%): Major Osteoporotic Fracture: [17.9] Hip Fracture: [3.0] IMPRESSION: 1. Osteopenia (Low bone mass). 2. There has been a statistically significant increase in BMD since prior exam, detailed above. 3. See below National Osteoporosis Foundation guidelines on when to potentially initiate pharmacologic therapy. Based on the National Osteoporosis Foundation Guidelines, pharmacologic treatment should be initiated in any of the following, unless clinical conditions suggest otherwise: * Any patient with prior fragility fracture of the hip or vertebrae. A spine fracture indicates 5X risk for subsequent spine fracture and 2X risk for subsequent hip fracture. * Osteoporosis (T-score <-2.5). * Postmenopausal women and men age 50 and older with low bone mass/osteopenia (T-score between -1.0 and -2.5) by DXA and 10-year major osteoporotic fracture greater than 20% or a 10-year probability of hip fracture greater than 3%. These fracture risks are supplied above in the FRAX score, if applicable. * Clinician judgement and/or patient preferences may indicate treatment for people with 10-year fracture probabilities above or below these levels. Dictated by: Dictated on workstation # [id number]
== END ==
LOC: RAD 08:21
PROVIDERS: ATTEND Family Medicine
DX: M85.80 Other specified disorders of bone density and structure, unspecified site (principal); Z78.0 Asymptomatic menopausal state; Z79.899 Other long term (current) drug therapy
CPT/HCPCS: 77080

== ENCOUNTER → 2020-12-04 | Outpatient (CLI) | payer MEDICARE ==
[2020-12-04 10:03] LABS: BASOPHILS % (AUTO) 1 % (0-10); EOSINOPHILS # (AUTO) 0.1 10^3/uL (0.0-0.3); EOSINOPHILS % (AUTO) 2 % (0-10); HEMATOCRIT 42 % (35-52); HEMOGLOBIN 13.8 g/dL (11.5-16.0); LYMPHOCYTES # (AUTO) 1.5 10^3/uL (1.0-4.0); LYMPHOCYTES % (AUTO) 25 % (12-44); MEAN CORPUSCULAR HEMOGLOBIN 30 pg (25-34); MEAN CORPUSCULAR HGB CONC 33 g/dL (32-36); MEAN CORPUSCULAR VOLUME 91 fL (80-99); MEAN PLATELET VOLUME 9.7 fL (9.0-12.2); MONOCYTES # (AUTO) 0.5 10^3/uL (0.0-1.0); MONOCYTES % (AUTO) 9 % (0-12); NEUTROPHILS % (AUTO) 64 % (42-75); PLATELET COUNT 189 10^3/uL (130-400); WHITE BLOOD COUNT 6.2 10^3/uL (4.3-11.0)
[2020-12-04 10:43] LABS: ALBUMIN 4.2 GM/DL (3.2-4.5); BILIRUBIN,TOTAL 0.4 MG/DL (0.1-1.0); CALCIUM 9.6 MG/DL (8.5-10.1); CREATININE SERUM 0.85 MG/DL (0.60-1.30); FREE T4 (FREE THYROXINE) 0.9 NG/DL (0.70-1.48); POTASSIUM 4.2 MMOL/L (3.6-5.0); TOTAL PROTEIN 7.2 GM/DL (6.4-8.2)
== END ==
LOC: LAB 09:25
PROVIDERS: ATTEND Family Medicine
DX: Z00.00 Encounter for general adult medical examination without abnormal findings (principal); E78.2 Mixed hyperlipidemia; R73.02 Impaired glucose tolerance (oral)
CPT/HCPCS: 36415; 80053; 80061; 84439; 84443; 85025

== ENCOUNTER → 2021-12-15 | Outpatient (CLI) | payer MEDICARE, OTHER ==
[2021-12-15 09:37] LABS: BASOPHILS # (AUTO) 0.1 10^3/uL (0.0-0.1); BASOPHILS % (AUTO) 1 % (0-10); EOSINOPHILS # (AUTO) 0.1 10^3/uL (0.0-0.3); EOSINOPHILS % (AUTO) 2 % (0-10); HEMATOCRIT 41 % (35-52); HEMOGLOBIN 13.7 g/dL (11.5-16.0); LYMPHOCYTES # (AUTO) 1.5 10^3/uL (1.0-4.0); LYMPHOCYTES % (AUTO) 29 % (12-44); MEAN CORPUSCULAR HEMOGLOBIN 30 pg (25-34); MEAN CORPUSCULAR HGB CONC 33 g/dL (32-36); MEAN CORPUSCULAR VOLUME 91 fL (80-99); MEAN PLATELET VOLUME 9.8 fL (9.0-12.2); MONOCYTES # (AUTO) 0.5 10^3/uL (0.0-1.0); MONOCYTES % (AUTO) 9 % (0-12); NEUTROPHILS # (AUTO) 3.2 10^3/uL (1.8-7.8); NEUTROPHILS % (AUTO) 60 % (42-75); PLATELET COUNT 188 10^3/uL (130-400); WHITE BLOOD COUNT 5.3 10^3/uL (4.3-11.0)
[2021-12-15 09:58] LABS: ALBUMIN 4.3 GM/DL (3.2-4.5); BILIRUBIN,TOTAL 0.5 MG/DL (0.1-1.0); CALCIUM 9.7 MG/DL (8.5-10.1); CREATININE SERUM 0.85 MG/DL (0.60-1.30); POTASSIUM 3.9 MMOL/L (3.6-5.0); TOTAL PROTEIN 7.3 GM/DL (6.4-8.2)
== END ==
LOC: LAB 09:16
PROVIDERS: ATTEND Family Medicine
DX: E78.00 Pure hypercholesterolemia, unspecified (principal); R53.83 Other fatigue
CPT/HCPCS: 36415; 80053; 80061; 84443; 85025

== ENCOUNTER → 2021-12-16 | Outpatient (CLI) | payer MEDICARE ==
--- NOTE | 2021-12-16 12:25 | Diagnostic Imaging Report ---
INDICATION: Postmenopausal screening COMPARISON: 12/12/2019 FINDINGS: AP Spine L1-L4: [BMD (g/cm2): 1.042] [T-Score: -1.3] [Z-Score: 0.0] [BMD Previous: 1.009] [BMD % Change: 3.3] LT Hip Neck: [BMD (g/cm2): 0.777] [T-Score: -1.9] [Z-Score: -0.4] LT Hip Total: [BMD (g/cm2):0.788] [T-Score:-1.7] [Z-Score: -0.5] [BMD Previous: 0.806] [BMD % Change: -2.2] RT Hip Neck: [BMD (g/cm2):0.763] [T-Score:-2.0] [Z-Score:-0.5] RT Hip Total: [BMD (g/cm2):0.796] [T-score:-1.7] [Z-Score:-0.5] [BMD Previous:0.875] [BMD % Change:-9.0] *Indicates significant change from prior examination based on 95% confidence level. World Health Organization criteria for BMD interpretation classify patients as Normal (T-score at or above -1.0), Osteopenic (T-score between -1.0 and -2.5) or Osteoporotic (T-score at or below -2.5). LIMITATIONS AND MODIFICATION: None. FRACTURE RISK (FRAX SCORE): The ten year probability of (%): Major Osteoporotic Fracture: [18.7] Hip Fracture: [3.7] IMPRESSION: 1. Osteopenia (Low bone mass). 2. No significant change in bone mineral density since prior examination. 3. See below National Osteoporosis Foundation guidelines on when to potentially initiate pharmacologic therapy. Based on the National Osteoporosis Foundation Guidelines, pharmacologic treatment should be initiated in any of the following, unless clinical conditions suggest otherwise: * Any patient with prior fragility fracture of the hip or vertebrae. A spine fracture indicates 5X risk for subsequent spine fracture and 2X risk for subsequent hip fracture. * Osteoporosis (T-score <-2.5). * Postmenopausal women and men age 50 and older with low bone mass/osteopenia (T-score between -1.0 and -2.5) by DXA and 10-year major osteoporotic fracture greater than 20% or a 10-year probability of hip fracture greater than 3%. These fracture risks are supplied above in the FRAX score, if applicable. * Clinician judgement and/or patient preferences may indicate treatment for people with 10-year fracture probabilities above or below these levels. Dictated by: Dictated on workstation # [id number]
== END ==
LOC: RAD 08:23
PROVIDERS: ATTEND Family Medicine
DX: M85.80 Other specified disorders of bone density and structure, unspecified site (principal); Z78.0 Asymptomatic menopausal state
CPT/HCPCS: 77080

== ENCOUNTER → 2022-01-22 | Outpatient (CLI) | payer MEDICARE | END | disposition home or self-care (01) | LOC: PREOP 05:40 | PROVIDERS: ATTEND Internal Medicine | DX: Z01.818 Encounter for other preprocedural examination (principal) ==

== ENCOUNTER → 2022-09-14 | Outpatient (CLI) | payer MEDICARE, OTHER ==
--- NOTE | 2022-09-14 11:07 | Diagnostic Imaging Report ---
INDICATION: Bilateral flank pain TECHNIQUE: Multiple real-time grayscale sonographic images were obtained of the kidneys. CORRELATION: None FINDINGS: RIGHT KIDNEY: 10.6 x 3.6 x 5.4 cm. LEFT KIDNEY: 10.6 x 4.9 x 5.0 cm. There is normal echotexture of the renal parenchyma of both kidneys. No definitive calcification or hydronephrosis. URINARY BLADDER: Bilateral ureteral jets are present. Bladder volume is small. However, there is question of abnormal bladder wall thickening. IMPRESSION: 1. Unremarkable renal sonogram. 2. Bladder wall thickening questioned. This may be owing to its relatively decompressed state. Can also be seen with cystitis. Dictated by: Dictated on workstation # [id number]
== END ==
LOC: RAD 08:48
PROVIDERS: ATTEND Family Medicine
DX: N39.0 Urinary tract infection, site not specified (principal)
CPT/HCPCS: 76770

== ENCOUNTER → 2022-10-20 | Outpatient (CLI) | payer MEDICARE, OTHER ==
[~2022-10-20] MED LIST changes: +CATHETER FLUSH 10 ML SYR IV PRN; +HOLD METFORMIN - RECEIVED CONTRAST 20 ML VIAL IV SCH; +IOHEXOL 350 MG/ML 100 ML (OMNIPAQUE 350) VIAL IV ONE; +NS 100 ML (IVPB) BAG IV ONE
[2022-10-20 08:04] LABS: CREATININE SERUM 0.82 MG/DL (0.60-1.30)
--- NOTE | 2022-10-20 09:32 | Diagnostic Imaging Report ---
EXAMINATION: CT abdomen and pelvis with intravenous contrast. TECHNIQUE: Multiple contiguous axial images were obtained through the abdomen and pelvis after the uneventful administration of intravenous contrast. All CT scans use one or more of the following dose optimizing techniques: automated exposure control, MA and/or KvP adjustment based on patient size and exam type or iterative reconstruction. HISTORY: Left flank pain. COMPARISON: None available. FINDINGS: Lung bases: Bibasilar dependent atelectasis. Solid organs: The liver is normal without focal lesion. The gallbladder is normal. There is no biliary ductal dilation. Pancreas is normal. Spleen is normal. Adrenal glands are normal. The kidneys are normal without hydronephrosis. Bowel: The stomach and small bowel are normal without obstruction. There is scattered colonic diverticulosis. The appendix is normal. Peritoneum: There is no intraperitoneal free fluid or free air. No suspicious lymphadenopathy. There is mild haziness of the mesentery which is nonspecific. Vasculature: Normal without aneurysm. Musculoskeletal: Degenerative changes of the spine without suspicious osseous lesion or compression fracture. Pelvis: The uterus and adnexa are normal. The urinary bladder is normal. IMPRESSION: No acute abnormality in the abdomen or pelvis. Dictated by: Dictated on workstation # [id number]
== END ==
LOC: RAD 08:15
PROVIDERS: ATTEND Internal Medicine Hematology & Oncology
DX: C50.811 Malignant neoplasm of overlapping sites of right female breast (principal); C50.812 Malignant neoplasm of overlapping sites of left female breast; M54.50 Low back pain, unspecified; Z17.0 Estrogen receptor positive status [ER+]
CPT/HCPCS: 36415; 74177; 82565; 84520